=== PATIENT | female | born 1980 | race Two or more races ===

== ENCOUNTER 2020-01-22 12:09 | Outpatient (CLI) | payer OTHER | END 2020-01-22 13:00 | disposition home or self-care (01) | LOC: OFIC 805 12:09 | PROVIDERS: ATTEND Otolaryngology | DX: H93.8X3 Other specified disorders of ear, bilateral (principal); H69.93 Unspecified Eustachian tube disorder, bilateral; H92.03 Otalgia, bilateral ==

== ENCOUNTER 2020-02-12 12:39 | Outpatient (CLI) | payer OTHER | END 2020-02-12 13:00 | disposition home or self-care (01) | LOC: OFIC 805 12:39 | PROVIDERS: ATTEND Otolaryngology | DX: H92.01 Otalgia, right ear (principal); H93.8X1 Other specified disorders of right ear; H69.81 Other specified disorders of Eustachian tube, right ear ==

== ENCOUNTER 2020-08-13 14:59 | Outpatient (CLI) | payer OTHER | END 2020-08-13 16:12 | disposition home or self-care (01) | LOC: OFIC 805 14:59 | PROVIDERS: ATTEND Otolaryngology Otology & Neurotology | DX: H93.8X3 Other specified disorders of ear, bilateral (principal); H69.83 Other specified disorders of Eustachian tube, bilateral ==